=== PATIENT | female | born 1990 | race Caucasian/White ===

== ENCOUNTER 2018-10-02 10:41 | Inpatient (IN) | payer BC ==
--- NOTE | 2018-10-02 11:15 | ED ---
Psychiatric Complaint - HPI Summary HPI Summary: Pt is a 27 y/o female brought in by EMS and police on a 945 who presents to the ED c/o azeem. Today she was at [facility] for an appointment with her psychiatrist. In the appointment, she told her psychiatrist the only reason she hasnt committed suicide the past few days was that its inconvenient. Pts psychiatrist believes that pt is having a hypomanic or manic episode, which the pt has never had before. When asked about her SI, she states her plan is to drinking cleaning solution. Pt does not want a MHE. Pt is diagnosed with depression and anxiety, and is on Wellbutrin. She states the medication has not been working recently. Pt tried to commit suicide before by hanging. She reports drinking heavily a few days ago, and states that her alcohol use has been causing issues in her life. Pt is accompanied by her partner. - History Of Current Complaint Chief Complaint: EDMentalHealth Time Seen by Provider: 10/02/18 10:57 Hx Obtained From: Patient Onset/Duration: Lasting Days - 2-3, Still Present Timing: Constant Character: Manic Aggravating Factor(s): Nothing Alleviating Factor(s): Nothing Related History: Positive For: Prior Psychiatric Issues Has Suicidal: Reports: Thoughts Has Homicidal: Denies: Thoughts - Allergies/Home Medications Allergies/Adverse Reactions: Allergies Allergy/AdvReac Type Severity Reaction Status Date / Time jay Allergy Swelling Verified 10/02/18 11:13 Of Face,Lips,& Throat peanut Allergy Anaphylatic Verified 10/02/18 11:13 Shock Home Medications: Home Medications buPROPion HCl [Bupropion Xl] 150 mg PO DAILY 10/02/18 [History Confirmed ] PMH/Surg Hx/FS Hx/Imm Hx Endocrine/Hematology History: Denies: Hx Diabetes Psychiatric History: Reports: Hx Anxiety, Hx Depression Infectious Disease History: No Infectious Disease History: Denies: Traveled Outside the [place] in Last 30 Days - Family History Known Family History: Positive: Diabetes, Other - Depression - Social History Alcohol Use: Occasionally Hx Substance Use: No Substance Use Type: Reports: None Hx Tobacco Use: Yes Smoking Status (MU): Light Every Day Tobacco Smoker Review of Systems Negative: Fever Positive: Depressed, Other - Azeem, SI All Other Systems Reviewed And Are Negative: Yes Physical Exam - Summary Physical Exam Summary: Appearance: The patient is well-nourished in no acute distress and in no acute pain. Skin: The skin is warm and dry and skin color reflects adequate perfusion. HEENT: The head is normocephalic and atraumatic. The pupils are equal and reactive. The conjunctivae are clear and without drainage. Nares are patent and without drainage. Mouth reveals moist mucous membranes and the throat is without erythema and exudate. The external ears are intact. The ear canals are patent and without drainage. The tympanic membranes are intact. Neck: The neck is supple with full range of motion and non-tender. There are no carotid bruits. There is no neck vein distension. Respiratory: Chest is non-tender. Lungs are clear to auscultation and breath sounds are symmetrical and equal. Cardiovascular: Heart is regular rate and rhythm. There is no murmur or rub auscultated. There is no peripheral edema and pulses are symmetrical and equal. Abdomen: The abdomen is soft and non-tender. There are normal bowel sounds heard in all four quadrants and there is no organomegaly palpated. Musculoskeletal: There is no back tenderness noted. Extremities are non-tender with full range of motion. There is good capillary refill. There is no peripheral edema or calf tenderness elicited. Neurological: Patient is alert and oriented to person, place and time. The patient has symmetrical motor strength in all four extremities. Cranial nerves are grossly intact. Deep tendon reflexes are symmetrical and equal in all four extremities. Psychiatric: Mildly angry. Triage Information Reviewed: Yes Vital Signs On Initial Exam: Initial Vitals Temp Pulse Resp BP Pulse Ox 97.9 F 88 22 110/64 96 10/02/18 11:11 10/02/18 11:11 10/02/18 11:11 10/02/18 11:11 10/02/18 11:11 Vital Signs Reviewed: Yes Diagnostics - Vital Signs Vital Signs Temp Pulse Resp BP Pulse Ox 10/02/18 11:11 97.9 F 88 22 110/64 96 - Laboratory Result Diagrams: 10/02/18 11:24 10/02/18 11:24 Lab Statement: Any lab studies that have been ordered have been reviewed, and results considered in the medical decision making process. Re-Evaluation - Re-Evaluation First Eval Re-Evaluation Time: 12:23 Change: Unchanged Comment: Pt is medically cleared for a MHE. Course/Dx - Course Course Of Treatment: Ms. Ruiz revealed during her stay that she had been planning on drinking bleach and cleaning fluids in order to kill herself. She sees this act as an independence from her . She was medically cleared and went to the [facility] where she underwent mental health eval. They felt that she was a candidate for 939 admission. - Differential Dx/Clinical Impression Provider Diagnosis: Mood disorder - Physician Notifications Discussed Care Of Patient With: Robin Wallace Time Discussed With Above Provider: 14:17 Instructed by Provider To: Admit As Inpatient - Dr. Wallace accepts pt for admission. Discharge - Sign-Out/Discharge Documenting (check all that apply): Patient Departure - Admit - Discharge Plan Condition: Stable Disposition: ADMITTED TO [facility] Referrals: No Primary Care Phys,NOPCP [Primary Care Provider] - - Billing Disposition and Condition Condition: STABLE Disposition: Admitted to [facility] - Attestation Statements Document Initiated by Scribe: Yes Documenting Scribe: Rita Maria Provider For Whom Radha is Documenting (Include Credential): Yaron Moseley MD Scribe Attestation: Rita Dee, scribed for Yaron Moseley MD on 10/02/18 at 1424. Scribe Documentation Reviewed: Yes Provider Attestation: The documentation as recorded by the Rita tello accurately reflects the service I personally performed and the decisions made by me, Yaron Moseley MD Status of Scribe Document: Viewed
[2018-10-02 11:35] LABS: ABS Basophils 0 10^3/ul (0-0.2); ABS Eosinophils 0.1 10^3/ul (0-0.6); ABS Lymphocytes 1.9 10^3/ul (1.0-4.8); ABS Monocytes 0.6 10^3/ul (0-0.8); ABS Neutrophils 9.8 10^3/ul (1.5-7.7); ABS Nucleated RBC 0 10^3/ul; Eosinophil % 0.7 %; Hematocrit 39 % (35-47); Hemoglobin 12.6 g/dl (12.0-16.0); Lymphocyte % 15.6 %; Mean Corpuscular HGB Conc 32 g/dl (31-36); Mean Corpuscular Hemoglobin 27 pg (27-31); Mean Corpuscular Volume 84 fL (80-97); Mean Platelet Volume 7.3 fL (7.4-10.4); Nucleated Red Blood Cells % 0; Platelet Count 387 10^3/ul (150-450); Red Blood Count 4.63 10^6/ul (4.00-5.40); Red Cell Distribution Width 16 % (10.5-15); White Blood Count 12.4 10^3/ul (3.5-10.8)
[2018-10-02 11:42] LABS: Urine Appearance Clear; Urine Blood 1+ (Negative); Urine Color Straw; Urine Ketones Negative (Negative); Urine Protein Negative (Negative); Urine Red Blood Cell Trace(0-2/hpf) (Absent); Urine Urobilinogen Negative (Negative); Urine White Blood Cell Trace(0-5/hpf) (Absent)
[2018-10-02 11:51] LABS: EGFR Non-African American 146.9 (>60)
[2018-10-02] MEDS ORDERED: Al Hydrox/Mg Hydrox/Simet LIQ* 30 ML UDC PO PRN (14:12)
[2018-10-02] MEDS ORDERED: Acetaminophen TAB* 325 MG PO PRN (14:12)
[2018-10-02] MEDS ORDERED: hydrOXYzine HCL TAB* 50 MG PO PRN (14:13)
[2018-10-03] MEDS ORDERED: Nicotine Inhaler* 10 MG AMP INH PRN (14:16)
[2018-10-03] MEDS ORDERED: Nicotine GUM* 2 MG PO PRN (14:16)
[2018-10-03] MEDS ORDERED: LORazepam TAB(*) 0.5 MG PO PRN (14:27)
[2018-10-03] MEDS ORDERED: Mouth Piece, Nicotine* 1 EACH CARTRIDGE INH ONE (15:00)
[2018-10-03] MEDS ORDERED: Saline NASAL SPRAY 0.65%* BTL BOTH NARES PRN (16:33)
[2018-10-03] MEDS: Lithium Carbonate ER* 450 MG TAB.ER PO SCH (20:27)
[2018-10-03] MEDS: LORazepam TAB(*) 1 MG PO PRN (20:29)
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
[2018-10-04] MEDS: Lithium Carbonate ER* 450 MG TAB.ER PO SCH (21:47)
[2018-10-04] MEDS: LORazepam TAB(*) 1 MG PO PRN (21:50)
--- NOTE | 2018-10-05 19:26 | PN ---
Subjective - Subjective Date of Service: 10/05/18 Service Type: [id number] Hosp care 15 min low complexity Subjective: Carol continues to be labile with guilt feeling, sadness and crying. [place] initially helped but still not there. Denies hallucinations or delusions. Also denies SI/HI. Objective - Appearance Appearance: Healthy Appearing Dysmorphic Features: No Hygiene: Normal Grooming: Well Kept - Behavior Psychomotor Activities: Normal Exhibits Abnormal Movement: No - Attitude and Relatedness Attitude and Relatedness: Appropriate Eye Contact: Fair - Speech Quality: Unpressured Latencies: Normal Quantity: Appropriate - Mood Patient's Decription of Mood: "Sad" - Affect Observed Affect: Labile Affect Consistent with: Dysphoria - Thought Process Patient's Thought Process: Coherent, Goal Directed Thought Content: No Passive Wish, No Suicidal Planning, No Homicidal Ideation, No Paranoid Ideation - Sensorium Experiencing Hallucinations: No, Sensorium is Clear Type of Hallucinations: Visual: No, Auditory: No, Command: No - Level of Consciousness Level of Consciousness: Alert Orientation: Yes Intact, Yes Orientated to Time, Yes Orientated to Place, Yes Orientated to Person - Impulse Control Impulse Control: Intact - Insight and Judgement Insight and Judgement: Fair - Group Participation Particating in Group Activities: Yes - Medication Management Medication Management Adherence: Yes Assessment - Assessment Merits Inpatient Hospitalization: For Immediate Safety, For Stabilization, Pending Safe DC Plan Clinical Impression: Still labile but tolerating mood stabilizer well. Plan - Plan Treatment Plan: Name: CAROL GODWIN Birthdate: 1990 [id number] Continued Medication Management: Continue Outpt Medication Medications: Current Medications Acetaminophen (Tylenol Tab*) 650 mg PO Q4H PRN PRN Reason: for pain; or Temp >101 F Al Hydrox/Mg Hydrox/Simethicone (Maalox Plus*) 30 ml PO Q4H PRN PRN Reason: INDIGESTION Hydroxyzine HCl (Atarax Tab*) 50 mg PO Q6H PRN PRN Reason: ANXIETY Last Admin: 10/02/18 20:12 Dose: 50 mg [place] Carbonate ([place] Carbonate Er Tab*) 450 mg PO BEDTIME ASHLEIGH Last Admin: 10/04/18 21:47 Dose: 450 mg Lorazepam (Ativan Tab(*)) 0.5 mg PO Q4H PRN PRN Reason: ANXIETY Lorazepam (Ativan Tab(*)) 1 mg PO BEDTIME PRN PRN Reason: INSOMNIA Last Admin: 10/04/18 21:50 Dose: 1 mg Nicotine (Nicotine Inhaler*) 10 mg INH Q2H PRN PRN Reason: CRAVING Nicotine Polacrilex (Nicotine Gum*) 2 mg PO Q2H PRN PRN Reason: CRAVING Sodium Chloride (Sodium Chloride 0.65% Nasal [place]*) 1 spray BOTH NARES Q2H PRN PRN Reason: CONGESTION - Discharge Plan Discharge Plan: Outpatient Follow Up Outpatient Program: [facility]
[2018-10-05] MEDS: Lithium Carbonate ER* 450 MG TAB.ER PO SCH (21:05)
[2018-10-05] MEDS: LORazepam TAB(*) 1 MG PO PRN (21:05)
[2018-10-06] MEDS: Benzocaine/Menthol LOZ* 1 LOZENGE PO PRN ×2 (14:03→19:10)
--- NOTE | 2018-10-06 14:57 | PN ---
Subjective - Subjective Date of Service: 10/06/18 Service Type: [id number] Hosp care 25 min moderate complexity Subjective: Madeline is feeling upset a bit because she is still having ups and downs that are frightening to her. She had hoped the lithium would work right away. Her remains supportive, but it is hard for her to manage this relationship as she is so frustrated with herself for her behavior. Much of the manic symptoms are dissipated, but Madeline seems vulnerable to mixed state problems and is not safe at this time to be alone. We will be increasing her lithium to 450 mg BID. Objective - Appearance Appearance: Healthy Appearing Dysmorphic Features: No Hygiene: Normal Grooming: Well Kept - Behavior Psychomotor Activities: Normal Exhibits Abnormal Movement: No - Attitude and Relatedness Attitude and Relatedness: Cooperative Eye Contact: Fair - Speech Quality: Unpressured Latencies: Normal Quantity: Appropriate - Mood Patient's Decription of Mood: "Sad" - Affect Observed Affect: Labile Affect Consistent with: Dysphoria - Thought Process Patient's Thought Process: Coherent Thought Content: Yes Passive Wish, No Suicidal Planning, No Homicidal Ideation, No Paranoid Ideation - Sensorium Experiencing Hallucinations: No, Sensorium is Clear Type of Hallucinations: Visual: No, Auditory: No, Command: No - Level of Consciousness Level of Consciousness: Alert Orientation: Yes Intact, Yes Orientated to Time, Yes Orientated to Place, Yes Orientated to Person - Impulse Control Impulse Control: Impaired - Insight and Judgement Insight and Judgement: Fair - Group Participation Particating in Group Activities: Yes - Medication Management Medication Management Adherence: Yes - Additional Observations Comments: Madeline would like to feel better and is therefore motivated to take her medication as prescribed. She is frightened by what has happened to her and is eager to stabilize before going home. Assessment - Assessment Merits Inpatient Hospitalization: For Immediate Safety Inpatient DSM-V Dx: F31.60 Clinical Impression: Madeline is a 27-year-old woman who has experienced her first significant bipolar manic/mixed episode in her life, although she is able to trace other, milder episodes in her past, who comes in following a visit to [facility] where she described suicidal ideation and inability to contract for safety. Plan - Plan Treatment Plan: Name: RAKAN GODWIN Birthdate: 1990 [id number] Continued Medication Management: Start Medication Medications: Current Medications Acetaminophen (Tylenol Tab*) 650 mg PO Q4H PRN PRN Reason: for pain; or Temp >101 F Al Hydrox/Mg Hydrox/Simethicone (Maalox Plus*) 30 ml PO Q4H PRN PRN Reason: INDIGESTION Hydroxyzine HCl (Atarax Tab*) 50 mg PO Q6H PRN PRN Reason: ANXIETY Last Admin: 10/02/18 20:12 Dose: 50 mg [place] Carbonate ([place] Carbonate Er Tab*) 450 mg PO BID ASHLEIGH Lorazepam (Ativan Tab(*)) 0.5 mg PO Q4H PRN PRN Reason: ANXIETY Lorazepam (Ativan Tab(*)) 1 mg PO BEDTIME PRN PRN Reason: INSOMNIA Last Admin: 10/05/18 21:05 Dose: 1 mg Nicotine (Nicotine Inhaler*) 10 mg INH Q2H PRN PRN Reason: CRAVING Nicotine Polacrilex (Nicotine Gum*) 2 mg PO Q2H PRN PRN Reason: CRAVING Sodium Chloride (Sodium Chloride 0.65% Nasal [place]*) 1 spray BOTH NARES Q2H PRN PRN Reason: CONGESTION Throat Lozenges (Chloraseptic Ofelia*) 1 ofelia PO Q6H PRN PRN Reason: SORE THROAT Last Admin: 10/06/18 14:03 Dose: 1 ofelia - Discharge Plan Discharge Plan: Outpatient Follow Up Outpatient Program: Counseling[facility] Services at [facility] Additional Comments: Madeline is currently taking lithium and it was increased today to 300 mg BID.
[2018-10-06] MEDS ORDERED: Lithium Carbonate ER* 450 MG TAB.ER PO SCH (21:00)
[2018-10-06] MEDS: LORazepam TAB(*) 1 MG PO PRN (21:36)
[2018-10-07] MEDS: Benzocaine/Menthol LOZ* 1 LOZENGE PO PRN ×2 (07:27→14:05)
[2018-10-07] MEDS: Lithium Carbonate TAB* 300 MG PO SCH ×2 (09:31→21:26)
--- NOTE | 2018-10-07 14:18 | PN ---
Subjective - Subjective Date of Service: 10/07/18 Service Type: [id number] Hosp care 25 min moderate complexity Subjective: Madeline is feeling more stable, although she also realizes that she will have a steep learning curve as it relates to her living with bipolar disorder. She's had a lot of time on her own to think, which she isn't sure has been entirely helpful. It has made her realize, though, that her "workaholic" habits have contributed to less self care. Objective - Appearance Appearance: Healthy Appearing Dysmorphic Features: No Hygiene: Normal Grooming: Fairly Well Kept - Behavior Psychomotor Activities: Normal Exhibits Abnormal Movement: No - Attitude and Relatedness Attitude and Relatedness: Appropriate Eye Contact: Good - Speech Quality: Unpressured Latencies: Normal Quantity: Appropriate - Mood Patient's Decription of Mood: "Okay" - Affect Observed Affect: Constricted Affect Consistent with: Dysphoria - Thought Process Patient's Thought Process: Coherent Thought Content: No Passive Wish, No Suicidal Planning, No Homicidal Ideation, No Paranoid Ideation - Sensorium Experiencing Hallucinations: No, Sensorium is Clear Type of Hallucinations: Visual: No, Auditory: No, Command: No - Level of Consciousness Level of Consciousness: Alert Orientation: Yes Intact, Yes Orientated to Time, Yes Orientated to Place, Yes Orientated to Person - Impulse Control Impulse Control: Intact - Insight and Judgement Insight and Judgement: Good - Group Participation Particating in Group Activities: Yes - Medication Management Medication Management Adherence: Yes - Additional Observations Comments: Madeline would like to feel better and is therefore motivated to take her medication as prescribed. Assessment - Assessment Inpatient DSM-V Dx: F31.60 Clinical Impression: Madeline is a 27-year-old woman who has experienced her first significant bipolar manic/mixed episode in her life, although she is able to trace other, milder episodes in her past, who comes in following a visit to [facility] where she described suicidal ideation and inability to contract for safety. Plan - Plan Treatment Plan: Name: RAKAN GODWIN Birthdate: 1990 [id number] Medications: Current Medications Acetaminophen (Tylenol Tab*) 650 mg PO Q4H PRN PRN Reason: for pain; or Temp >101 F Al Hydrox/Mg Hydrox/Simethicone (Maalox Plus*) 30 ml PO Q4H PRN PRN Reason: INDIGESTION Hydroxyzine HCl (Atarax Tab*) 50 mg PO Q6H PRN PRN Reason: ANXIETY Last Admin: 10/02/18 20:12 Dose: 50 mg [place] Carbonate ([place] Carbonate Tab*) 300 mg PO BID ASHLEIGH Last Admin: 10/07/18 09:31 Dose: 300 mg Lorazepam (Ativan Tab(*)) 0.5 mg PO Q4H PRN PRN Reason: ANXIETY Lorazepam (Ativan Tab(*)) 1 mg PO BEDTIME PRN PRN Reason: INSOMNIA Last Admin: 10/06/18 21:36 Dose: 1 mg Nicotine (Nicotine Inhaler*) 10 mg INH Q2H PRN PRN Reason: CRAVING Nicotine Polacrilex (Nicotine Gum*) 2 mg PO Q2H PRN PRN Reason: CRAVING Sodium Chloride (Sodium Chloride 0.65% Nasal [place]*) 1 spray BOTH NARES Q2H PRN PRN Reason: CONGESTION Throat Lozenges (Chloraseptic [place]*) 1 ofelia PO Q6H PRN PRN Reason: SORE THROAT Last Admin: 10/07/18 14:05 Dose: 1 ofelia - Discharge Plan Discharge Plan: Outpatient Follow Up Outpatient Program: PCP in [place] Additional Comments: Madeline is currently taking lithium and it was increased today to 300 mg BID. Her blood will be drawn tomorrow (10/08/18) for a lithium level. Discharge is planned for tomorrow.
[2018-10-07] MEDS: LORazepam TAB(*) 1 MG PO PRN (21:32)
[2018-10-08 08:16] VITALS: BP 101/66
[2018-10-08] MEDS: Lithium Carbonate TAB* 300 MG PO SCH (08:58)
--- NOTE | 2018-10-08 15:58 | DS ---
CC: Dr. Melissa Vega in [facility] * DISCHARGE SUMMARY: DATE OF ADMISSION: 10/02/18 DATE OF DISCHARGE: 10/08/18 PROVIDER: Pat Muñoz NP, in Psychiatry. SUPERVISING PHYSICIAN: Dr. Robin Wallace.* (DICTATED BY PAT MUÑOZ NP) DIAGNOSES: [place] I: Bipolar I disorder, current episode manic, moderate. [place] II: Deferred. CONDITION AT THE TIME OF DISCHARGE: Madeline is improved and psychiatrically cleared. She is stable and she participated in groups and was social with peers. Her is agreeable to discharge as is Madeline. She has done well here psychiatrically. She tolerated lithium and hydroxyzine well. She will be returning to [facility] to have an appointment at the [facility] and will be seeing her primary care doctor in [place], Dr. Melissa Vega, phone number [phone] for medications. MENTAL STATUS EXAM: At the time of discharge, Madeline is calm, cooperative, and makes good eye contact. She is alert and oriented x3. Her grooming is excellent. Her speech pace is normal and thought processes are logical. She is not psychotic or delusional. She denies AH, VH, SI, and HI. Her insight is good. Her judgment is fair. She is willing to follow up and she is urged to see the therapist that we are coordinating for her. DISCHARGE INSTRUCTIONS TO THE PATIENT: A. Medications: 1. Hydroxyzine HCl 50 mg q.6 hours as needed for anxiety, dispensed 60. 2. [place] carbonate 300 mg twice a day, dispensed 60. 3. Nicotine gum 2 mg every 2 hours dispensed 100 p.r.n. nicotine craving. B. Diet is regular. C. Activities: As tolerated. Madeline is a smoker and she has accepted a referral to the [facility]. There are no studies pending at the time of discharge. D. Followup care: She has appointments with Dr. Melissa Vega and she will be returning at least for a time to [place] to live with her . E. Substance abuse followup is not indicated. HOSPITAL COURSE: A. Chief Complaint: "I was having suicidal ideation and I don't understand what is happening to me." The patient is a 27-year-old , female with a history of mood disorder, who arrives, brought in by ambulance from [facility] and is here on a 939 status following her confessing to the psychiatrist at [place] that she is not feeling well and that she is having suicidal thoughts. Madeline started to have depressed feelings 2 weeks ago. She has had depressed feelings throughout her life. Recently, however, she has also engaged in casual sex and spent significant amounts of money that she really does not have. She has also been angry. She has been crying soon after being angry and feeling as if her mood is not manageable and feeling as if something is wrong. She is to a man, who lives in [place]. Both of them got together. They are from [place], so they got so that they could stay together when they move to the [facility]. He has been suspecting that something has been wrong. He saw that his credit cards were nearly maxed out. He surprised her by coming to [place]. This was warranted as she is in fact ill, but she felt cornered and distressed. He notices her mood changes and her aunts recognized it as well. B. Psychiatric treatment was rendered. The patient was admitted to the adult behavioral unit and placed on 15-minute checks for safety. She soon earned the privileges of 30-minute checks, staff pass, and comfort room. Madeline did well on the unit. She went to groups and interacted with peers well, although she was somewhat seclusive to herself. We did add lithium starting at 450 extended release and moving up to 600 mg as 300 mg b.i.d. Her lithium blood level currently is 0.31; although we desire 0.5 to 1.2 range, this is a good starting point as she has only been taking it for a few days and the dose was only increased last night. It is possible that it will drift up to 0.5, which may be sufficient for Madeline. She did use utilize some Ativan while here. I discontinued that going home and substituted hydroxyzine instead. She is concerned about her work and she is quite interested in having a more settled life. It should be noted that Madeline's symptoms seem to be mixed state issues. She does have traditional manic symptoms such as hypersexuality and overspending while at the same time being angry, irritable, and having suicidal thoughts. Her met with her at almost every opportunity. No consults were entered for Madeline, unfortunately throughout her stay she had a cold, which made a negative impact on how well she was feeling. She is, however, much improved. She feels more stable, she feels more confident and she is learning about what it means to live with bipolar disorder. PAT MUÑOZ, EMILY [id number]/[facility] #: [id number] KETURAH
== END 2018-10-08 13:07 | disposition home or self-care (01) | DRG 753 ==
LOC: ED 10:41 → BSU 14:12
PROVIDERS: ADMIT Psychiatry & Neurology Psychiatry; ATTEND Psychiatry & Neurology Psychiatry
DX: F31.12 Bipolar disorder, current episode manic without psychotic features, moderate (principal); R45.851 Suicidal ideations; F17.210 Nicotine dependence, cigarettes, uncomplicated; Z62.810 Personal history of physical and sexual abuse in childhood; G47.00 Insomnia, unspecified; R63.0 Anorexia; Z68.23 Body mass index [BMI] 23.0-23.9, adult; Z81.8 Family history of other mental and behavioral disorders
CPT/HCPCS: 36415; 80053; 80061; 80178; 80307; 80320; 80329; 81003; 81015; 83036; 84443; 84702; 85025; 86703; 87086; 87491; 87591; 99222; 99231; 99232; 99284; A9270-GY; G0480